=== PATIENT | female | born 1995 | race Caucasian/White ===

== ENCOUNTER 2017-11-08 06:06 | Inpatient (IN) ==
[2017-11-08] MEDS ORDERED: CITRIC ACID/SODIUM CITRATE 30 ML UDCUP PO ONE (06:19)
[2017-11-08] MEDS ORDERED: FAMOTIDINE 20 MG/2 ML VIAL IV ONE (06:19)
[2017-11-08] MEDS: LACTATED RINGERS 1,000 ML IV SCH ×3 (06:47→19:28)
[2017-11-08] MEDS ORDERED: OXYTOCIN/LR 20 UNIT/1,000 ML BAG IV ONE ×2 (06:48→11:40)
[2017-11-08 06:58] LABS: Basophils % 0.3 % (0.0-0.8); Eosinophils # 0.1 10*3/uL (0.0-0.87); Hematocrit 35.3 VOL% (35.7-47.0); Hemoglobin 12.1 GM/DL (12.0-16.0); Immature Granulocytes Absolute 0.07 #; Lymphocytes # 1.8 10*3/uL (1.4-4.0); Lymphocytes % 26.5 % (21.3-54.2); Mean Corpuscular HGB Conc 34.3 GM/DL (32-36); Mean Corpuscular Hemoglobin 28 PG (27-34); Mean Corpuscular Volume 81.7 FL (87-102); Mean Platelet Volume 10.4 FL (9.6-12.0); Monocytes # 0.5 10*3/uL (0.11-0.8); Monocytes % 7.3 % (1.7-12.7); Neutrophils # 4.4 10*3/uL (1.4-7.4); Neutrophils % 63.9 % (38.7-73.9); Platelet Count 267 T/CUMM (130-400); Red Blood Count 4.32 MC/CUMM (3.8-5.5); Red Cell Distribution Width 16.7 % (9.3-17.3); White Blood Count 6.9 T/CUMM (4-12)
[2017-11-08] MEDS ORDERED: BUPIVACAINE SPINAL 0.75% 2 ML AMP SPINAL ONE (09:45)
[2017-11-08] MEDS ORDERED: METHYLERGONOVINE 0.2 MG/1 ML AMP ONE (10:58)
[2017-11-08] MEDS ORDERED: METHYLERGONOVINE 0.2 MG/1 ML AMP IM ONE (11:00)
[2017-11-08] MEDS ORDERED: MORPHINE 10 MG/10 ML VIAL ONE (11:40)
[2017-11-08] MEDS ORDERED: ACETAMINOPHEN 325 MG TABLET PO PRN (11:40)
[2017-11-08] MEDS ORDERED: RHO(D) IMMUNE GLOBULIN 300 MCG SYRINGE IM ONE (11:40)
[2017-11-08] MEDS ORDERED: LACTATED RINGERS 1,000 ML IV ONE (11:40)
[2017-11-08] MEDS ORDERED: fentaNYL 100 MCG/2 ML VIAL ONE (11:40)
[2017-11-08] MEDS ORDERED: ONDANSETRON 4 MG/2 ML VIAL IV PRN (11:40)
[2017-11-08] MEDS ORDERED: ONDANSETRON 4 MG/2 ML VIAL ONE (11:40)
[2017-11-08 11:59] LABS: Apearance,Urine CLEAR (Clear); Bacteria,Urine Occasional /HPF (Few); Bilirubin,Urine Negative (Negative); Blood, Urine Negative (Negative); Glucose,Urine (UA) Negative (Negative); Ketones,Urine 5 mg/dL (Negative); Nitrite,Urine Negative (Negative); Protein,Urine Negative; RBC,Urine <1 /HPF (0-4); Urine Color Straw (Yellow); Urine Specific Gravity 1.004 (1.001-1.035); Urine Urobilinogen < 2.0 EU/DL (0.2-1.0); WBC,Urine 1 /HPF (0-6)
[2017-11-08] MEDS ORDERED: ONDANSETRON 4 MG/2 ML VIAL IV ONE (13:50)
[2017-11-08 14:03] LABS: Basophils % 0.2 % (0.0-0.8); Eosinophils % 0.1 % (0.00-10.9); Hematocrit 31.2 VOL% (35.7-47.0); Hemoglobin 10.3 GM/DL (12.0-16.0); Immature Granulocytes % 0.7 %; Lymphocytes % 14.3 % (21.3-54.2); Mean Corpuscular Hemoglobin 28 PG (27-34); Mean Corpuscular Volume 84.1 FL (87-102); Mean Platelet Volume 10.6 FL (9.6-12.0); Monocytes # 0.7 10*3/uL (0.11-0.8); Monocytes % 5.2 % (1.7-12.7); Neutrophils # 11.2 10*3/uL (1.4-7.4); Neutrophils % 79.5 % (38.7-73.9); Platelet Count 282 T/CUMM (130-400); Red Blood Count 3.71 MC/CUMM (3.8-5.5); Red Cell Distribution Width 16.6 % (9.3-17.3); White Blood Count 14.1 T/CUMM (4-12)
[2017-11-08] MEDS ORDERED: PROMETHAZINE 25 MG/1 ML VIAL IM PRN (17:02)
[2017-11-08] MEDS ORDERED: PROMETHAZINE 25 MG/1 ML VIAL ONE (17:03)
[2017-11-08] MEDS: ceFAZolin 1,000 MG in SYRINGE 1 EACH IV SCH (18:21)
[2017-11-09] MEDS: ceFAZolin 1,000 MG in SYRINGE 1 EACH IV SCH (02:36)
[2017-11-09] MEDS: LACTATED RINGERS 1,000 ML IV SCH (02:50)
[2017-11-09] MEDS ORDERED: ceFAZolin 1,000 MG in SYRINGE 1 EACH IV SCH (03:00)
[2017-11-09] MEDS: DOCUSATE SODIUM 100 MG CAPSULE PO SCH ×3 (03:02→22:23)
[2017-11-09 06:16] LABS: Basophils % 0.1 % (0.0-0.8); Eosinophils % 0.4 % (0.00-10.9); Hematocrit 21.9 VOL% (35.7-47.0); Immature Granulocytes % 0.6 %; Immature Granulocytes Absolute 0.06 #; Lymphocytes # 1.8 10*3/uL (1.4-4.0); Lymphocytes % 17.9 % (21.3-54.2); Mean Corpuscular HGB Conc 33.3 GM/DL (32-36); Mean Corpuscular Hemoglobin 28 PG (27-34); Mean Corpuscular Volume 83.3 FL (87-102); Mean Platelet Volume 10.7 FL (9.6-12.0); Monocytes # 0.7 10*3/uL (0.11-0.8); Monocytes % 7.5 % (1.7-12.7); Neutrophils # 7.2 10*3/uL (1.4-7.4); Neutrophils % 73.5 % (38.7-73.9); Red Cell Distribution Width 16.9 % (9.3-17.3)
[2017-11-09 06:26] LABS: Hemoglobin 7.3 GM/DL (12.0-16.0); Red Blood Count 2.63 MC/CUMM (3.8-5.5); White Blood Count 9.8 T/CUMM (4-12)
[2017-11-09 06:27] LABS: Platelet Count 179 T/CUMM (130-400)
[2017-11-09] MEDS ORDERED: RHO(D) IMMUNE GLOBULIN 300 MCG SYRINGE IM ONE (09:52)
[2017-11-09] MEDS: FERROUS SULFATE 325 MG TABLET PO SCH ×3 (10:27→22:23)
[2017-11-09] MEDS: MULTIVITAMIN (PRENATAL) TABLET PO SCH (10:27)
[2017-11-09 10:33] LABS: Hematocrit 23.9 VOL% (35.7-47.0); Hemoglobin 7.7 GM/DL (12.0-16.0)
[2017-11-09] MEDS: IBUPROFEN 800 MG TABLET PO PRN (15:47)
[2017-11-09] MEDS: SIMETHICONE CHEW 80 MG TABLET PO PRN (22:23)
[2017-11-09] MEDS: MAGNESIUM HYDROXIDE SUSP 30 ML UDCUP PO PRN (22:24)
[2017-11-10] MEDS: IBUPROFEN 800 MG TABLET PO PRN ×2 (07:56→15:48)
[2017-11-10] MEDS: MULTIVITAMIN (PRENATAL) TABLET PO SCH (09:59)
[2017-11-10] MEDS: FERROUS SULFATE 325 MG TABLET PO SCH ×3 (09:59→22:35)
[2017-11-10] MEDS: DOCUSATE SODIUM 100 MG CAPSULE PO SCH ×2 (09:59→22:35)
[2017-11-10] MEDS: SIMETHICONE CHEW 80 MG TABLET PO PRN (15:46)
[2017-11-10] MEDS: MAGNESIUM HYDROXIDE SUSP 30 ML UDCUP PO PRN ×2 (15:46→22:37)
[2017-11-11 07:22] VITALS: BP 122/71
[2017-11-11] MEDS: FERROUS SULFATE 325 MG TABLET PO SCH (08:28)
[2017-11-11] MEDS: DOCUSATE SODIUM 100 MG CAPSULE PO SCH (08:28)
[2017-11-11] MEDS: MAGNESIUM HYDROXIDE SUSP 30 ML UDCUP PO PRN (08:28)
[2017-11-11] MEDS: MULTIVITAMIN (PRENATAL) TABLET PO SCH (08:28)
[2017-11-11] MEDS: IBUPROFEN 800 MG TABLET PO PRN (09:56)
== END 2017-11-11 11:05 | disposition home or self-care (01) | DRG 540 ==
LOC: N.LDOUT 06:06 → N.LD 06:09 → N.OB 16:54
PROVIDERS: ADMIT Obstetrics & Gynecology; ATTEND Obstetrics & Gynecology
PROC: LDCSECT (ICD-10-PCS; 2017-11-08 08:00)

== ENCOUNTER 2018-11-10 06:11 | Inpatient (IN) ==
[2018-11-10] MEDS ORDERED: ONDANSETRON 4 MG/2 ML VIAL IV PRN ×2 (06:23→10:46)
[2018-11-10] MEDS ORDERED: LACTATED RINGERS 500 ML IV PRN (06:23)
[2018-11-10] MEDS ORDERED: MEPERIDINE 50 MG/1 ML VIAL IV PRN (06:23)
[2018-11-10] MEDS ORDERED: BUTORPHANOL 2 MG/ML VIAL IV PRN (06:23)
[2018-11-10] MEDS ORDERED: LACTATED RINGERS 1,000 ML IV SCH ×2 (06:30→11:00)
[2018-11-10 06:46] LABS: Basophils % 0.3 % (0.0-0.8); Eosinophils % 0.5 % (0.00-10.9); Hematocrit 37.3 VOL% (35.7-47.0); Hemoglobin 12.2 GM/DL (12.0-16.0); Immature Granulocytes % 0.5 %; Immature Granulocytes Absolute 0.04 #; Lymphocytes # 2.3 10*3/uL (1.4-4.0); Lymphocytes % 26.3 % (21.3-54.2); Mean Corpuscular HGB Conc 32.7 GM/DL (32-36); Mean Corpuscular Hemoglobin 28 PG (27-34); Mean Corpuscular Volume 84.4 FL (87-102); Mean Platelet Volume 11.3 FL (9.6-12.0); Monocytes # 0.5 10*3/uL (0.11-0.8); Monocytes % 5.5 % (1.7-12.7); Neutrophils # 5.9 10*3/uL (1.4-7.4); Neutrophils % 66.9 % (38.7-73.9); Platelet Count 227 T/CUMM (130-400); Red Blood Count 4.42 MC/CUMM (3.8-5.5); Red Cell Distribution Width 12.7 % (9.3-17.3); White Blood Count 8.9 T/CUMM (4-12)
[2018-11-10] MEDS ORDERED: OXYTOCIN/LR 20 UNIT/1,000 ML BAG IV SCH (07:30)
[2018-11-10] MEDS ORDERED: FAMOTIDINE 20 MG/2 ML VIAL IV ONE (09:37)
[2018-11-10] MEDS ORDERED: ceFAZolin 2,000 MG in PREMIX 1 EACH IV ONE (09:37)
[2018-11-10] MEDS ORDERED: CITRIC ACID/SODIUM CITRATE 30 ML UDCUP PO ONE (09:37)
[2018-11-10] MEDS ORDERED: TERBUTALINE 1 MG/1 ML VIAL SUBCUT ONE ×2 (09:38→09:39)
[2018-11-10] MEDS ORDERED: LACTATED RINGERS 1,000 ML IV ONE (09:40)
[2018-11-10] MEDS ORDERED: BUPIVACAINE 0.5% 50 ML VIAL ONE (10:26)
[2018-11-10] MEDS ORDERED: RHO(D) IMMUNE GLOBULIN 300 MCG SYRINGE IM ONE (10:46)
[2018-11-10] MEDS ORDERED: ACETAMINOPHEN 325 MG TABLET PO PRN (10:46)
[2018-11-10] MEDS ORDERED: OXYTOCIN/LR 20 UNIT/1,000 ML BAG IV ONE (10:46)
[2018-11-10 10:57] LABS: Apearance,Urine CLEAR (Clear); Bilirubin,Urine Negative (Negative); Blood, Urine Negative (Negative); Glucose,Urine (UA) Negative (Negative); Ketones,Urine 5 mg/dL (Negative); Mucus,Urine Occasional /LPF (Occasional); Nitrite,Urine Negative (Negative); Protein,Urine Negative; RBC,Urine 1 /HPF (0-4); Urine Color Straw (Yellow); Urine Specific Gravity 1.006 (1.001-1.035); Urine Urobilinogen < 2.0 EU/DL (0.2-1.0); WBC,Urine <1 /HPF (0-6)
[2018-11-10] MEDS ORDERED: MORPHINE 10 MG/10 ML VIAL ONE (11:22)
[2018-11-10] MEDS ORDERED: fentaNYL 100 MCG/2 ML VIAL ONE (11:22)
[2018-11-10] MEDS ORDERED: BUPIVACAINE SPINAL 0.75% 2 ML AMP SPINAL ONE (11:23)
[2018-11-10] MEDS ORDERED: PHENYLEPHRINE 1 MG/10 ML SYRINGE IV ONE ×2 (11:23→11:51)
[2018-11-10] MEDS ORDERED: diphenhydrAMINE 50 MG/1 ML VIAL IV PRN ×2 (11:45→15:31)
[2018-11-10] MEDS ORDERED: hydrOXYzine HCL 25 MG/1 ML VIAL IM PRN (11:45)
[2018-11-10] MEDS ORDERED: HYDROmorphone 2 MG/1 ML VIAL IV PRN (11:45)
[2018-11-10] MEDS ORDERED: SODIUM CHLORIDE 0.9% 100 ML IV ONE (11:51)
[2018-11-10] MEDS ORDERED: ONDANSETRON 4 MG/2 ML VIAL ONE (11:51)
[2018-11-10] MEDS: ceFAZolin 1,000 MG in SYRINGE 1 EACH IV SCH (18:30)
[2018-11-10 19:22] LABS: Basophils % 0.2 % (0.0-0.8); Eosinophils % 0.2 % (0.00-10.9); Hematocrit 27.3 VOL% (35.7-47.0); Immature Granulocytes % 0.3 %; Immature Granulocytes Absolute 0.04 #; Lymphocytes # 1.8 10*3/uL (1.4-4.0); Lymphocytes % 15.2 % (21.3-54.2); Mean Corpuscular Hemoglobin 28 PG (27-34); Mean Corpuscular Volume 85.3 FL (87-102); Mean Platelet Volume 11.4 FL (9.6-12.0); Monocytes # 0.6 10*3/uL (0.11-0.8); Neutrophils # 9.5 10*3/uL (1.4-7.4); Neutrophils % 79.1 % (38.7-73.9); Platelet Count 178 T/CUMM (130-400); Red Cell Distribution Width 12.4 % (9.3-17.3); White Blood Count 11.9 T/CUMM (4-12)
[2018-11-10] MEDS: DOCUSATE SODIUM 100 MG CAPSULE PO SCH (20:22)
[2018-11-11] MEDS: ceFAZolin 1,000 MG in SYRINGE 1 EACH IV SCH (03:12)
[2018-11-11] MEDS: IBUPROFEN 800 MG TABLET PO PRN ×3 (03:25→22:47)
[2018-11-11] MEDS: oxyCODONE/ACETAMINOPHEN 5-325 MG TABLET PO PRN ×5 (03:26→23:31)
[2018-11-11 05:13] LABS: Basophils % 0.1 % (0.0-0.8); Eosinophils % 0.5 % (0.00-10.9); Hematocrit 26.6 VOL% (35.7-47.0); Hemoglobin 8.7 GM/DL (12.0-16.0); Immature Granulocytes % 0.5 %; Immature Granulocytes Absolute 0.04 #; Lymphocytes # 1.5 10*3/uL (1.4-4.0); Lymphocytes % 17.5 % (21.3-54.2); Mean Corpuscular HGB Conc 32.7 GM/DL (32-36); Mean Corpuscular Hemoglobin 28 PG (27-34); Mean Platelet Volume 11.9 FL (9.6-12.0); Monocytes # 0.6 10*3/uL (0.11-0.8); Monocytes % 6.7 % (1.7-12.7); Neutrophils # 6.5 10*3/uL (1.4-7.4); Neutrophils % 74.7 % (38.7-73.9); Platelet Count 169 T/CUMM (130-400); Red Blood Count 3.13 MC/CUMM (3.8-5.5); Red Cell Distribution Width 12.6 % (9.3-17.3); White Blood Count 8.7 T/CUMM (4-12)
[2018-11-11] MEDS: DOCUSATE SODIUM 100 MG CAPSULE PO SCH ×2 (08:33→20:21)
[2018-11-11] MEDS: MAGNESIUM HYDROXIDE SUSP 30 ML UDCUP PO PRN (08:33)
[2018-11-11] MEDS: SIMETHICONE CHEW 80 MG TABLET PO PRN ×2 (08:33→13:58)
[2018-11-11] MEDS: MULTIVITAMIN (PRENATAL) TABLET PO SCH (09:30)
[2018-11-11] MEDS ORDERED: RHO(D) IMMUNE GLOBULIN 300 MCG SYRINGE IM ONE (10:18)
[2018-11-12] MEDS: IBUPROFEN 800 MG TABLET PO PRN ×2 (09:28→20:16)
[2018-11-12] MEDS: MAGNESIUM HYDROXIDE SUSP 30 ML UDCUP PO PRN (09:28)
[2018-11-12] MEDS: DOCUSATE SODIUM 100 MG CAPSULE PO SCH ×2 (09:28→20:16)
[2018-11-12] MEDS: SIMETHICONE CHEW 80 MG TABLET PO PRN ×2 (09:28→20:15)
[2018-11-12] MEDS: MULTIVITAMIN (PRENATAL) TABLET PO SCH (09:28)
[2018-11-12] MEDS: oxyCODONE/ACETAMINOPHEN 5-325 MG TABLET PO PRN ×2 (09:29→17:25)
[2018-11-12] MEDS ORDERED: BISACODYL 10 MG SUPP RECTAL PRN (12:37)
[2018-11-13] MEDS: oxyCODONE/ACETAMINOPHEN 5-325 MG TABLET PO PRN ×2 (00:07→09:48)
[2018-11-13 08:49] VITALS: BP 110/62
[2018-11-13] MEDS: MULTIVITAMIN (PRENATAL) TABLET PO SCH (09:45)
[2018-11-13] MEDS: DOCUSATE SODIUM 100 MG CAPSULE PO SCH (09:48)
[2018-11-13] MEDS: IBUPROFEN 800 MG TABLET PO PRN (09:48)
== END 2018-11-13 12:00 | disposition home or self-care (01) | DRG 540 ==
LOC: N.OBOUT 06:11 → N.LD 06:14 → N.OB 14:27
PROVIDERS: ADMIT Obstetrics & Gynecology; ATTEND Obstetrics & Gynecology
PROC: LDCSECT (ICD-10-PCS; 2018-11-10 09:45)